=== PATIENT | female | born 1990 | race Two or more races ===

== ENCOUNTER 2021-02-13 09:42 | Outpatient (CLI) | payer OTHER | END 2021-02-13 10:00 | disposition home or self-care (01) | LOC: RX STUDY 09:42 | DX: N96 Recurrent pregnancy loss (principal) ==

== ENCOUNTER 2023-03-17 23:12 | Inpatient (IN) | payer OTHER ==
[~2023-03-17] VITALS: Ht 162.6 cm; Wt 93.4 kg
[~2023-03-17 23:12] MED LIST: ABANEU-SL TABL1 EACH SL; ADULT ASPIRIN81 MG PO; ENOXAPARIN40 MG/0.4 SQ; FUSION PLUS CA1 EACH PO; SINGULAIR4 MG PO; ZYRTEC10 M3 PO
== END 2023-03-19 08:42 | disposition home or self-care (01) | DRG 805 ==
LOC: LDR 23:12
PROVIDERS: ADMIT Obstetrics & Gynecology; ATTEND Obstetrics & Gynecology
PROC: 10E0XZZ Delivery of Products of Conception, External Approach (ICD-10-PCS; principal; 2023-03-18)
PROC: 4A1HXCZ Monitoring of Products of Conception, Cardiac Rate, External Approach (ICD-10-PCS; 2023-03-18)
PROC: BY4CZZZ Ultrasonography of Second Trimester, Single Fetus (ICD-10-PCS; 2023-03-18)
PROC: 3E033VJ Introduction of Other Hormone into Peripheral Vein, Percutaneous Approach (ICD-10-PCS; 2023-03-18)
PROC: 3E0P7VZ Introduction of Hormone into Female Reproductive, Via Natural or Artificial Opening (ICD-10-PCS; 2023-03-18)
DX: O41.02X0 Oligohydramnios, second trimester, not applicable or unspecified (principal); O41.1220 Chorioamnionitis, second trimester, not applicable or unspecified; Z37.1 Single stillbirth; O42.112 Preterm premature rupture of membranes, onset of labor more than 24 hours following rupture, second trimester; Z3A.18 18 weeks gestation of pregnancy; Z20.822 Contact with and (suspected) exposure to COVID-19; O26.842 Uterine size-date discrepancy, second trimester